=== PATIENT | male | born 1970 | race Caucasian/White ===

== ENCOUNTER 2017-01-02 14:43 | Emergency (ER) | payer OTHER ==
[~2017-01-02] VITALS: Ht 167.6 cm; Wt 77.0 kg
[~2017-01-02 14:43] MED LIST: ERYT1OIN6 BOTH EYES
[2017-01-02 14:46] VITALS: Ht 167.6 cm; Wt 77.0 kg
[2017-01-02 15:39] LABS: URINE BLOOD (Dip) POC Negative (NEGATIVE)
[2017-01-02] MEDS ORDERED: METF500T4 PO (15:52)
--- NOTE | 2017-01-02 15:54 | ERD ---
ER Documentation Chief Complaint Chief Complaint " I FEEL DIZZY I THINK MY BLOOD SUGAR IS HIGH" HPI 46-year-old male was diagnosed with diabetes over a year ago. He previously took medication but stopped it to attempt to control his diabetes with diet. Has been checking his blood sugar at home and over the last week he has been complaining of frequent urination and dizziness some blurry vision. Denies any fevers, vomiting, chest pain or shortness of breath. He was in the high 200s at home. ROS All systems reviewed and are negative except as per history of present illness. Medications Home Meds Active Scripts Metformin* (Glucophage*) 500 Mg Tab, 500 MG PO QDAY, #30 TAB Prov:NGUYEN PEMBERTON MD 01/02/17 Erythromycin (Erythromycin Opth) 3.5 Gm Oint..gm., 1 APPLIC BOTH EYES QID for 7 Days, EA Prov:BHASKAR CHRISTIANSEN MD 01/20/15 Allergies Allergies: Coded Allergies: No Known Drug Allergies (Verified Allergy, Unknown, 11/26/13) PMhx/Soc History of Surgery: No Anesthesia Reaction: No Hx Neurological Disorder: No Hx Respiratory Disorders: No Hx Cardiac Disorders: No Hx Psychiatric Problems: No Hx Miscellaneous Medical Probl: No Hx Alcohol Use: No Hx Substance Use: No Hx Tobacco Use: No Smoking Status: Never smoker Physical Exam Vitals Vital Signs Date Time Temp Pulse Resp B/P Pulse Ox O2 Delivery O2 Flow Rate FiO2 01/02/17 14:46 98.5 76 18 155/86 100 Physical Exam Const: [] Alert, [id number] Head: Atraumatic Eyes: Normal Conjunctiva ENT: Normal External Ears, Nose and Mouth. Neck: Full range of motion..~ No meningismus. Resp: Clear to auscultation bilaterally Cardio: Regular rate and rhythm, no murmurs Abd: Soft, non tender, non distended. Normal bowel sounds Skin: No petechiae or rashes Back: No midline or flank tenderness Ext: No cyanosis, or edema Neur: Awake and alert Psych: Normal Mood and Affect Results 24 hrs Laboratory Tests Test 01/02/17 15:37 01/02/17 15:45 Bedside Urine pH (LAB) 6.0 Bedside Urine Protein (LAB) Negative Bedside Urine Glucose (UA) 0.50% Bedside Urine Ketones (LAB) Negative Bedside Urine Blood Negative Bedside Urine Nitrite (LAB) Negative Bedside Urine Leukocyte Esterase (L Negative Bedside Glucose 209mg/dL [facility] Accu-Chek is 209. Urine shows no ketones. There is only glucose. Patient is alert and amatory throughout the ED course. Patient presents with a history of diet-controlled diabetes with elevation in blood sugar over the last week. He has no signs of ketoacidosis, sepsis, additional emergent causes of presenting complaints. Will resume Glucophage and primary care follow-up and return precautions. The patient was stable with no new complaints during the ER course. Clinically, there is no current evidence to suggest meningitis, sepsis, acute abdomen, pneumonia, acute coronary syndrome, pulmonary embolism, or any other emergent condition appearing to require further evaluation or hospitalization. The patient should certainly return for any new or worsening symptoms per the aftercare instructions. They should otherwise follow-up with her primary care doctor for reevaluation this week. Departure Diagnosis: Primary Impression: Hyperglycemia Condition: Stable Patient Instructions: Hyperglycemia (High Blood Sugar), DIABETES, General Info Additional Instructions: AZUCAR Kam HOY. VAMOS A EMPEZAR MEDICINA OTRO VEZ. Cheque otro vez con chao doctor primario en el proximo thorpe or regresa para mas o nueva simptomas. NGUYEN PEMBERTON MD Jan 02, 2017 15:54
== END 2017-01-02 16:14 | disposition home or self-care (01) ==
LOC: FTE 14:43
DX: E11.65 Type 2 diabetes mellitus with hyperglycemia (principal); Z79.84 Long term (current) use of oral hypoglycemic drugs
CPT/HCPCS: 81003; 82962; 99283

== ENCOUNTER 2018-09-02 20:37 | Emergency (ER) | payer SELFPAY ==
[~2018-09-02] VITALS: Ht 165.1 cm; Wt 77.7 kg
[~2018-09-02 20:37] MED LIST changes: +METF-849 PO
[2018-09-02 20:45] VITALS: BP 150/78; PULSE 63; RESP 16; Ht 165.1 cm; Wt 77.7 kg
[2018-09-03] MEDS ORDERED: IBUP-1542 PO (03:44)
== END 2018-09-02 23:00 | disposition left against medical advice (07) ==
LOC: E/R 20:37
DX: Z53.21 Procedure and treatment not carried out due to patient leaving prior to being seen by health care provider (principal)

== ENCOUNTER 2018-09-03 00:21 | Emergency (ER) | payer MEDICAID ==
[~2018-09-03] VITALS: Ht 165.1 cm; Wt 77.7 kg
[2018-09-03 00:30] VITALS: Ht 165.1 cm; Wt 77.7 kg
[2018-09-03] MEDS ORDERED: LACTATED RINGER'S 1,000 ML IV STA (02:06)
[2018-09-03] MEDS ORDERED: KETOROLAC 15 MG INJ IV STA (02:06)
[2018-09-03] MEDS ORDERED: ONDANSETRON 4 MG INJ IV STA (02:06)
[2018-09-03] MEDS ORDERED: LIDOCAINE/MYLANTA 40 ML BTL PO STA (02:06)
[2018-09-03] MEDS ORDERED: BELLADONNA/PHENOBARBITAL TAB PO STA (02:06)
--- NOTE | 2018-09-03 02:26 | ERD ---
ER Documentation Chief Complaint Chief Complaint R flank & epigastric pains x 4 days HPI 47-year-old man complaining of right upper abdominal pain and epigastric discomfort x4 days, he states pain got worse today. He states the pain is been constant nonradiating and nonexertional, he denies lower abdominal pain, no fevers or chills, no anorexia, no chest pain or shortness of breath. ROS All systems reviewed and are negative except as per history of present illness. Medications Home Meds Active Scripts Ibuprofen* (Motrin*) 600 Mg Tab, 600 MG PO Q8 PRN for PAIN AND/OR INFLAMMATION, #30 TAB Prov:SOLOMON FREEMAN MD 09/03/18 Metformin* (Glucophage*) 500 Mg Tab, 500 MG PO QDAY, #30 TAB Prov:NGUYEN PEMBERTON MD 01/02/17 Erythromycin (Erythromycin Opth) 3.5 Gm Oint..gm., 1 APPLIC BOTH EYES QID for 7 Days, EA Prov:BHASKAR CHRISTIANSEN MD 01/20/15 Allergies Allergies: Coded Allergies: No Known Drug Allergies (Verified Allergy, Unknown, 11/26/13) PMhx/Soc History of Surgery: No Anesthesia Reaction: No Hx Neurological Disorder: No Hx Respiratory Disorders: No Hx Cardiac Disorders: No Hx Psychiatric Problems: No Hx Miscellaneous Medical Probl: No Hx Alcohol Use: No Hx Substance Use: No Hx Tobacco Use: No FmHx Family History: No diabetes Physical Exam Vitals Vital Signs Date Temp Pulse Resp B/P (MAP) Pulse Ox O2 O2 Flow FiO2 Time Delivery Rate 09/03/18 59 18 159/100 99 Room Air 03:00 (119) 09/03/18 96.1 58 18 145/92 99 00:30 (109) Physical Exam GENERAL: Well-developed, well-nourished, well-hydrated, in no apparent distress, looks nontoxic in appearance HEENT: Moist mucous membranes, pink conjunctiva, no cervical spine tenderness or step-off deformities, no goiter, no jaundice or icterus, extraocular movements intact without pain. No submandibular induration, and no pharyngeal erythema NEURO: Alert and oriented 3, cranial nerves II through XII intact bilaterally, pupils equal round reactive to light, no focal deficits or facial asymmetry, sensation intact distally Strength 5/5 in upper and lower extremities bilaterally CARDIAC: Regular rate and rhythm, no murmurs rubs or gallops LUNGS: Clear bilaterally no wheezing crackles or stridor ABDOMEN: Soft nontender, no guarding, no rigidity, no rebound, no psoas sign no obturator sign. Normoactive bowel sounds SKIN: Warm and dry to touch, no abrasions, contusions, or hematomas, no lacera tions, no ecchymosis, no target lesions, and without ulcers EXTREMITIES: No clubbing cyanosis or edema, calves are bilaterally symmetrical, no Homans sign, no popliteal cord sign. Distal pulses equal and bilateral PSYCH: Normal affect without agitation or irritability Result Diagram: 09/03/18 0235 09/03/18 0235 Results 24 hrs Laboratory Tests Test 09/03/18 01:57 09/03/18 02:03 09/03/18 02:35 Bedside Glucose 166 mg/dL Bedside Urine pH (LAB) 7.0 Bedside Urine Protein (LAB) Negative Bedside Urine Glucose (UA) 0.1% Bedside Urine Ketones (LAB) Negative Bedside Urine Blood Negative Bedside Urine Nitrite (LAB) Negative Bedside Urine Leukocyte Esterase Negative (L White Blood Count 6.9 10^3/ul Red Blood Count 5.10 10^6/ul Hemoglobin 15.5 g/dl Hematocrit 44.8 % Mean Corpuscular Volume 87.8 fl Mean Corpuscular Hemoglobin 30.4 pg Mean Corpuscular 34.6 g/dl Hemoglobin Concent Red Cell Distribution Width 11.6 % Platelet Count 239 10^3/UL Mean Platelet Volume 10.4 fl Immature Granulocytes % 0.300 % Neutrophils % 64.0 % Lymphocytes % 23.3 % Monocytes % 8.7 % Eosinophils % 2.8 % Basophils % 0.9 % Nucleated Red Blood Cells % 0.0 /100WBC Immature Granulocytes # 0.020 10^3/ul Neutrophils # 4.4 10^3/ul Lymphocytes # 1.6 10^3/ul Monocytes # 0.6 10^3/ul Eosinophils # 0.2 10^3/ul Basophils # 0.1 10^3/ul Nucleated Red Blood Cells # 0.0 10^3/ul Sodium Level 143 mmol/L Potassium Level 4.3 mmol/L Chloride Level 103 mmol/L Carbon Dioxide Level 31 mmol/L Anion Gap 9 Blood Urea Nitrogen 12 mg/dl Creatinine 0.70 mg/dl Est Glomerular Filtrat Rate mL/min > 60 mL/min Glucose Level 179 mg/dl Calcium Level 9.5 mg/dl Total Bilirubin 0.4 mg/dl Direct Bilirubin 0.00 mg/dl Indirect Bilirubin 0.4 mg/dl Aspartate Amino Transf (AST/SGOT) 74 IU/L Alanine 170 IU/L Aminotransferase (ALT/SGPT) Alkaline Phosphatase 103 IU/L Total Protein 8.2 g/dl Albumin 4.5 g/dl Globulin 3.70 g/dl Albumin/Globulin Ratio 1.21 Lipase 599 U/L Current Medications Medications Dose Sig/Myrna Start Time Status Last (Trade) Ordered Route PRN Stop Time Admin Dose Reason Admin Lactated 1,000 ml @ Q1H STAT 09/03/18 DC 09/03/18 Ringer's 1,000 mls/hr IV 02:06 02:38 09/03/18 03:05 Ondansetron 4 mg ONCE STAT 09/03/18 DC 09/03/18 HCl (Zofran IV 02:06 02:38 Inj) 09/03/18 02:08 40 ml ONCE STAT 09/03/18 DC 09/03/18 Miscellaneous PO 02:06 02:38 Medication 09/03/18 02:08 (Gi Cocktail (2)) Belladonna/ 2 tab ONCE STAT 09/03/18 DC 09/03/18 Phenobarbital PO 02:06 02:38 () 09/03/18 02:08 Ketorolac 15 mg ONCE STAT 09/03/18 DC 09/03/18 Tromethamine IV 02:06 02:38 (Toradol) 09/03/18 02:08 Procedures/[facility] IV line was established patient was placed on athletic monitor rhythm strip revealed a sinus rhythm at about 80 bpm with upright P and T waves. Patient was afebrile I administered 1 L LR IV, Toradol 15 mg IV, Zofran 4 mg IV, GI cocktail p.o. CBC and electrolytes are normal, liver function tests revealed mild transaminitis and elevated lipase, UA was negative for RBCs Gallbladder ultrasound revealed gallbladder sludge, gallbladder wall within normal limits, no evidence of cholecystitis. No evidence of biliary obstruction Differential diagnoses considered, included but not limited to acute coronary syndrome, pulmonary embolism, aortic dissection, abdominal aortic aneurysm, sepsis, stroke, meningitis, encephalitis, pneumonia, appendicitis, cholecystitis, bowel obstruction, pyelonephritis, nephrolithiasis, cystitis, as well as metabolic, hematologic, and electrolyte abnormalities. As well as abscess, cellulitis, fractures, and dislocations. Patient feels much better at this time, and vital signs are normal, symptoms have improved. I did give strict instructions to return to the ED if symptoms continue or worsen, patient will otherwise follow-up with primary care physician. Patient understood instructions and agreed to plan. Disclaimer: Inadvertent spelling and grammatical errors are likely due to EHR/dictation software use and do not reflect on the overall quality of patient care. Also, please note that the electronic time recorded on this note does not necessarily reflect the actual time of the patient encounter. Departure Diagnosis: Primary Impression: Abdominal pain Abdominal location: epigastric Qualified Codes: R10.13 - Epigastric pain Additional Impression: Elevated lipase Condition: Good SOLOMON FREEMAN MD Sep 03, 2018 02:26
[2018-09-03] MEDS ORDERED: IBUP-1542 PO (03:44)
[2018-09-03 04:33] VITALS: BP 125/86; PULSE 60; RESP 19
== END 2018-09-03 04:34 | disposition home or self-care (01) ==
LOC: E/R 00:21
DX: R10.13 Epigastric pain (principal); R74.8 Abnormal levels of other serum enzymes; Z79.84 Long term (current) use of oral hypoglycemic drugs
CPT/HCPCS: 36415; 76705; 80053; 81003; 82962; 83690; 85025; 96361; 96374; 96375; J1885; J2405; J7120; Z7502; Z7610